=== PATIENT | female | born 2000 | race African-American/Black ===

== ENCOUNTER 2020-02-25 00:53 | Emergency (ER) | payer OTHER ==
[~2020-02-25] VITALS: Ht 157.5 cm; Wt 49.0 kg
[2020-02-25 00:56] VITALS: BP 116/72; Ht 157.5 cm; Wt 49.0 kg
== END 2020-02-25 04:11 | disposition left against medical advice (07) ==
LOC: ED 00:53
DX: Z53.21 Procedure and treatment not carried out due to patient leaving prior to being seen by health care provider (principal)